=== PATIENT | female | born 1935 | race Asian ===

== ENCOUNTER 2021-08-18 15:18 | Inpatient (IN) | payer SELFPAY ==
[~2021-08-18] VITALS: Ht 152.4 cm; Wt 66.2 kg
[2021-08-18 15:18] VITALS: BP_SYST 161
--- NOTE | 2021-08-18 15:34 | NUR ---
Pt present to ED with complaint of CP on inhalation. Pt strictly mandarin speaking. Pt Aox4 GCS 15.
--- NOTE | 2021-08-18 18:10 | NUR ---
ED physician at bedside assessing pt
[2021-08-18 18:15] LABS: EOSINOPHILS # (AUTO) 0.1 K/uL (0.0-0.4); EOSINOPHILS % (AUTO) 2.5 % (0.0-4.0); HEMATOCRIT 37.5 % (36-48); HEMOGLOBIN 12.4 g/dL (12.0-16.0); LYMPHOCYTES # (AUTO) 0.9 K/uL (1.0-5.5); LYMPHOCYTES % (AUTO) 30.7 % (20.5-51.5); MEAN CORPUSCULAR HEMOGLOBIN 31 pg (27-31); MEAN CORPUSCULAR HGB CONC 33 % (32-36); MEAN CORPUSCULAR VOLUME 93 fL (79.0-98.0); MONOCYTES # (AUTO) 0.3 K/uL (0.0-1.0); MONOCYTES % (AUTO) 10.8 % (1.7-9.3); NEUTROPHILS # (AUTO) 1.7 K/uL (1.8-7.7); PLATELET COUNT (AUTO) 126 K/uL (130-430); RED BLOOD CELL COUNT(AUTO) 4.06 MIL/uL (4.2-6.2); RED CELL DISTRIBUTION WIDTH 13.1 % (9.0-15.0)
[2021-08-18 18:34] LABS: ANION GAP 4 (5-15); CALCIUM 8.3 mg/dL (8.4-11.0); CHLORIDE 109 mmol/L (98-107); CREATININE 1.02 mg/dL (0.55-1.30); GLUCOSE 117 mg/dL (70-99); POTASSIUM 4.4 mmol/L (3.5-5.1); SODIUM SERUM 145 mmol/L (136-145); UREA NITROGEN, BLOOD 16 mg/dL (8-21)
[2021-08-18 18:43] LABS: ALANINE AMINOTRANSFERASE 18 U/L (12-78); ALBUMIN 3.4 g/dL (3.4-4.8); ASPARTATE AMINOTRANSFERASE 18 U/L (10-37); TOTAL BILIRUBIN 0.2 mg/dL (0.0-1.0)
[2021-08-18] MEDS ORDERED: cefTRIAXone 1 GM IVPB PREMIX 50 ML IV ONE (18:45)
--- NOTE | 2021-08-18 19:02 | NUR ---
Pt present with complaint of chest pain on inspiration. pt strictly mandarin speaking, great grand son at bedside to assist with translation. Pt Aox4 GCS 15. IV access intitiated. Pt on monitoir
--- NOTE | 2021-08-18 19:14 | NUR ---
Report given to Janet GILMORE for continuation of care. Pt stable in no acute distress at change of shift.
--- NOTE | 2021-08-18 20:26 | NUR ---
Admit bed requested Patient will be admitted to care of . Admitted to MED SURG unit. Diagnosis PNEUMONIA Inpatient (Yes or No) YES Orientation concerns or request close to nursing station (Yes or No) NO Covid Status PENDING From Home (Yes or if No enter name of facility) Y
--- NOTE | 2021-08-18 21:06 | NUR ---
PT IN BED RESTING, NO ACUTE DISTRESS. PT DENIES ANY PAIN. SON AT THE BEDSIDE. PT PENDING ADMISSION. WILL MONITOR NEEDED
[2021-08-18] MEDS ORDERED: IPRATROPIUM/ALBUTEROL SULFATE 3 ML AMPUL.NEB (DUONEB) INH PRN (21:30)
[2021-08-18] MEDS ORDERED: AZITHROMYCIN 250 MG TABLET PO ONE (21:30)
[2021-08-18] MEDS ORDERED: NACL 0.9% 1,000 ML IV SCH (21:30)
[2021-08-18] MEDS ORDERED: DOCUSATE SODIUM 100 MG CAPSULE PO PRN (21:45)
[2021-08-18] MEDS ORDERED: ZOLPIDEM TARTRATE 5 MG TABLET PO PRN (21:45)
[2021-08-18] MEDS ORDERED: MUPIROCIN 2% TOPICAL OINTMENT 22 GM NS PRN (21:45)
[2021-08-18] MEDS ORDERED: MAGNESIUM SULFATE 50 ML IV PRN (21:45)
[2021-08-18] MEDS ORDERED: ONDANSETRON HCL 4 MG/2 ML VIAL IVP PRN (21:45)
[2021-08-18] MEDS ORDERED: POTASSIUM CHLORIDE 20 MEQ TAB.PRT.SR PO PRN (21:45)
[2021-08-18] MEDS ORDERED: LORazepam 2 MG/ML VIAL IVP PRN (21:45)
[2021-08-18] MEDS ORDERED: lisinopriL 5 MG TABLET PO ONE (22:00)
--- NOTE | 2021-08-18 22:31 | NUR ---
Patient will be admitted to care of DR. SHELDON. Admitted to unit. Will go to room . Belongings list completed. Complete and up to date summary report printed. SBAR report to be given at bedside with opportunity for questions.
--- NOTE | 2021-08-18 22:33 | NUR ---
2215 BROUGHT O FLOOR VIA WHEELCHAIR ACCOMPANIED BY FAMILY DAUGHTER AND SON, PLACE ON BED COMFORTABLY, REPORT GIVEN TO DEWAYNE GILMORE.
--- NOTE | 2021-08-18 22:34 | NUR ---
ADMIT NOTE Received pt from ER to the floor with a diagnosis of PNEUMONIA. Admission process initiated. patient oriented to pain management, safety and call light-teach back done.
[2021-08-18 22:35] VITALS: BP_SYST 158
--- NOTE | 2021-08-18 22:50 | NUR ---
Initial RN notes Pt AAOx3, VSS, afebrile, O2 sat 97-98% on room air. No c/o pain at this time. IVF NS started at 80cc/hr. Family at bedside. Call light within reach. Bed low, locked, siderails up x3, alarm on. To monitor.
[2021-08-18 23:48] VITALS: BP_SYST 158
[2021-08-19] MEDS: ACETAMINOPHEN 325 MG TABLET PO PRN ×2 (00:12→09:10)
--- NOTE | 2021-08-19 00:40 | NUR ---
Family at bedside. Pt's granddaughter Brittaney at bedside. Per Lefty Knowles, family ok to stay.
[2021-08-19 01:31] VITALS: BP_SYST 146
--- NOTE | 2021-08-19 06:15 | NUR ---
Closing notes Pt asleep, no SOB, no s/s distress noted. IVF infusing R. AC 20G clear and patent. Bed low, locked, siderails up x3, alarm on. To endorse to AM nurse.
[2021-08-19 08:00] VITALS: BP_SYST 161
[2021-08-19] MEDS ORDERED: LEVO500T90 PO (08:25)
[2021-08-19] MEDS ORDERED: ZIT250 PO (08:25)
[2021-08-19] MEDS ORDERED: LISI-209 PO (08:42)
[2021-08-19] MEDS ORDERED: AZITHROMYCIN 250 MG TABLET PO SCH (09:00)
[2021-08-19] MEDS ORDERED: lisinopriL 5 MG TABLET PO SCH (09:00)
[2021-08-19] MEDS ORDERED: HEPARIN SODIUM,PORCINE 5,000 UNITS/ML VIAL SUBCUT SCH (09:00)
--- NOTE | 2021-08-19 09:17 | NUR ---
CONSULT: AB WANG, [place] [id number] [phone] S/W: EMILY BHATIA
[2021-08-19] MEDS ORDERED: AZITHROMYCIN 250 MG TABLET PO ONE (09:30)
--- NOTE | 2021-08-19 10:00 | NUR ---
SSW SPOKE WITH PT/PT FAMILY RE MEDICAL.
--- NOTE | 2021-08-19 10:00 | NUR ---
Workforce Development Vice President DAYRON Milliganette responded to a request from Patient's RN Randal for social service support to address family's request for Medi-Anam and/or Medicare information. CORNICE UPHOLSTERER Sue met with patient's granddaughter Brittaney Hinojosa at patient's bedside. CORNICE UPHOLSTERER completed introductions and provided business card. Brittaney expressed needing information about eligibility for Medi-Anam and Medicare. She shared patient is from [place], has been here for about 1 year and half, and has a passport as her primary identification. Admitting will followup with family CORNICE UPHOLSTERER will continue to be available as needed Addendum: 08/19/21 at 1216 by Jena PADGETT Workforce Development Vice President CORNICE UPHOLSTERER met with the family at the families request. When CORNICE UPHOLSTERER arrived, pt was in the process of being discharged and Paula Tee was reviewing meds with pt. and granddaughter Brittaney. Brittaney asked CORNICE UPHOLSTERER if pt. can qualify for Medical regardless of her status. CORNICE UPHOLSTERER let Brittaney know that the previous DAYRON Rogers printed out some resources for low cost medical services and immigration. They would have to contact Immigration to inquire about pts. status since the pt is here on a visitors visa. CORNICE UPHOLSTERER handed them the three resource packets and asked if they could stop by the front dest to pay their bill. Brittaney asked what she should do re. the bill . CORNICE UPHOLSTERER reminded her that Brittaney spoke to Micaela from Admin re. the billing. CORNICE UPHOLSTERER called Micaela from the Rn ramin who confirmed she spoke to Brittaney and asked her to pay her bill of approx. $1,500. CORNICE UPHOLSTERER thanked Tamera and went back to reiterate this message to Brittaney. CORNICE UPHOLSTERER asked if they had any further questions and they did not. CORNICE UPHOLSTERER will remain available as needed.
--- NOTE | 2021-08-19 10:15 | NUR ---
rECEIVED PT IN BED, PT IS UKRAINIAN SPEAKING, FAMILY AT BEDSIDE. BP ELEVATED, C/O OF PAIN ON THE R. FLANK AREA. WILL MEDICATE FOR PAIN. DENIES ANY CHEST PAIN. Addendum: 08/19/21 at 1723 by Jermaine Lomeli RN correction: pt was received at 0730am;
[2021-08-19 10:36] VITALS: BP_SYST 143
--- NOTE | 2021-08-19 11:54 | NUR ---
SSW HERE AND TALKING TO PATIENT'S GRAND DAUGHTER [facility].
--- NOTE | 2021-08-19 12:30 | NUR ---
D/C Patient Patient given medication reconciliation form and D/C instructions. Exit Care provided. Patient verbalized understanding. MD discussed with patient the results and treatment provided. Ambulatory with steady gait for discharge to home. Patient in stable condition, ID band removed. IV catheter removed, intact and dressing applied, no active bleeding. ERx of given. Told pt to check with their pharmacy. Patient educated on pain management. All belongings sent with patient.
[2021-08-19] MEDS ORDERED: cefTRIAXone 1 GM in D5W 50 ML IV SCH (21:00)
[2021-08-20] MEDS ORDERED: AZITHROMYCIN 250 MG TABLET PO SCH (09:00)
== END 2021-08-19 12:30 | disposition home or self-care (01) | DRG 195 ==
LOC: SED 15:18 → SMU 20:20
PROVIDERS: ADMIT General Practice; ATTEND General Practice
DX: J18.9 Pneumonia, unspecified organism (principal); Z20.822 Contact with and (suspected) exposure to COVID-19; W18.39XA Other fall on same level, initial encounter; S23.41XA Sprain of ribs, initial encounter; Y93.89 Activity, other specified; Y92.89 Other specified places as the place of occurrence of the external cause; Y99.8 Other external cause status
CPT/HCPCS: 36415; 71045; 71250-TC; 76376; 80053; 83605; 84484; 85025; 87040; 93005; 96365; 96375; 99285; J0696; J1644; J1956; J7060; Q0144